=== PATIENT | female | born 1950 | race Caucasian/White ===

== ENCOUNTER 2016-09-03 01:21 | Inpatient (IN) | payer MEDICARE ==
[~2016-09-03] VITALS: Ht 177.8 cm; Wt 70.4 kg
[~2016-09-03 01:21] MED LIST: AMIT25TA9 PO
[2016-09-03] MEDS ORDERED: TRAM50TA4 PO (01:31)
[2016-09-03] MEDS ORDERED: TRAZ150 PO (01:31)
[2016-09-03] MEDS ORDERED: ATOR40TA71 PO (01:31)
[2016-09-03] MEDS ORDERED: DOCU250C21 PO (01:31)
[2016-09-03] MEDS ORDERED: SODIUM CHLORIDE 0.9% 1,000 ML IV ONE ×2 (01:45→09:30)
[2016-09-03] MEDS ORDERED: MORPHINE SULFATE 4 MG/ML SYRINGE IVP ONE (01:45)
[2016-09-03] MEDS ORDERED: ONDANSETRON HCL 4 MG/2 ML VIAL IVP ONE ×2 (01:45→12:00)
[2016-09-03 02:13] LABS: BASOPHILS # (AUTO) 0.01 K/uL (0.00-0.20); BASOPHILS % (AUTO) 0.1 % (0.0-2.0); EOSINOPHILS % (AUTO) 0.01 % (1.0-6.0); HEMATOCRIT 33.9 % (36-46); HEMOGLOBIN 11.6 g/dL (12.0-16.0); LYMPHOCYTES # (AUTO) 0.8 K/uL (1.0-4.8); LYMPHOCYTES % (AUTO) 3.7 % (22.0-44.0); MEAN CORPUSCULAR HEMOGLOBIN 29.9 pg (26.0-34.0); MEAN CORPUSCULAR HGB CONC 34.1 G/dL (31.0-37.0); MEAN CORPUSCULAR VOLUME 88 fL (80-100); MONOCYTES % (AUTO) 4.3 % (2.0-9.0); NEUTROPHILS # (AUTO) 20.3 K/uL (1.8-7.7); NEUTROPHILS % (AUTO) 91.9 % (40.0-70.0); PLATELET COUNT (AUTO) 255 K/uL (150-450); RED BLOOD CELL COUNT(AUTO) 3.86 MIL/uL (4.00-5.20); WHITE BLOOD COUNT (AUTO) 22.1 K/uL (4.5-11.0)
[2016-09-03 02:22] LABS: CREATININE 0.96 mg/dL (0.60-1.30); POTASSIUM 3.8 mmol/L (3.5-5.1)
[2016-09-03 02:27] LABS: ALBUMIN 3.4 g/dL (3.4-5.0); BILIRUBIN,TOTAL 0.6 mg/dL (0.1-1.0); TOTAL PROTEIN, SERUM 6.6 g/dL (6.4-8.2)
[2016-09-03] MEDS ORDERED: HYDROmorphone 2 MG/ML SYRINGE IVP ONE ×3 (02:30→12:45)
[2016-09-03] MEDS ORDERED: SODIUM CHLORIDE 0.9% 100 ML ONE (02:43)
[2016-09-03] MEDS ORDERED: IOVERSOL 350 MG/ML 100 ML VIAL ONE (02:43)
[2016-09-03] MEDS ORDERED: AMPICILLIN SODIUM/SULBACTAM NA 3 GM in SODIUM CHLORIDE 0.9% 100 ML IV ONE (04:30)
[2016-09-03 05:00] LABS: APPEARANCE,URINE CLEAR (CLEAR); GLUCOSE, URINE (UA) NEGATIVE (NEGATIVE); KETONES,URINE TRACE mg/dL (NEGATIVE); LEUKOCYTE ESTERASE ,URINE NEGATIVE (NEGATIVE); OCCULT BLOOD,URINE NEGATIVE (NEGATIVE); PROTEIN,URINE NEGATIVE (NEGATIVE)
[2016-09-03 05:07] LABS: ADD UA MICROSCOPIC NO
[2016-09-03] MEDS ORDERED: RINGERS SOLUTION,LACTATED 1,000 ML IV ONE (06:56)
[2016-09-03] MEDS ORDERED: MEPERIDINE-PF 25 MG/ML SYRINGE IVP PRN (08:00)
[2016-09-03] MEDS ORDERED: HYDROmorphone 2 MG/ML SYRINGE IVP PRN (08:00)
[2016-09-03] MEDS ORDERED: FentaNYL CITRATE-PF 100 MCG/2 ML VIAL IVP PRN (08:00)
[2016-09-03] MEDS ORDERED: HYDROCODONE/ACETAMINOPHEN 5-325 MG TABLET PO PRN (08:15)
[2016-09-03] MEDS ORDERED: ONDANSETRON HCL 4 MG/2 ML VIAL IVP PRN (08:15)
[2016-09-03] MEDS ORDERED: FentaNYL CITRATE-PF 100 MCG/2 ML VIAL ONE (08:42)
[2016-09-03] MEDS ORDERED: BUPIVACAINE 0.25%/EPI 1:200,000/PF 10 ML VIAL ONE (09:30)
[2016-09-03 09:47] VITALS: BP 125/58
[2016-09-03] MEDS: MORPHINE SULFATE 4 MG/ML SYRINGE IVP PRN ×2 (10:12→12:26)
[2016-09-03] MEDS: OXYGEN THERAPY IH SCH ×2 (10:12→20:57)
[2016-09-03 10:15] VITALS: BP 118/63
[2016-09-03] MEDS ORDERED: -PHARMACY VACCINE NOTE- MISC ONE ×2 (11:15)
[2016-09-03] MEDS ORDERED: INFLUENZA VIRUS VACCINE QVS 2016-17 (3YR+)/PF 60 MCG/0.5 ML SYRINGE IM ONE (11:15)
[2016-09-03 11:21] VITALS: BP 128/54
[2016-09-03] MEDS: HYDROCODONE/ACETAMINOPHEN 5-325 MG TABLET PO PRN (11:30)
[2016-09-03] MEDS ORDERED: SUCCINYLCHOLINE CHLORIDE 20 MG/ML 10 ML VIAL IVP ONE (12:00)
[2016-09-03] MEDS ORDERED: FentaNYL CITRATE-PF 250 MCG/5 ML VIAL IVP ONE (12:00)
[2016-09-03] MEDS ORDERED: MIDAZOLAM HCL 2 MG/2 ML VIAL IVP ONE (12:00)
[2016-09-03] MEDS ORDERED: LIDOCAINE HCL/PF 2% 5 ML VIAL INJ ONE (12:00)
[2016-09-03] MEDS ORDERED: PROPOFOL 1% 20 ML VIAL IVP ONE (12:00)
[2016-09-03] MEDS: DOCUSATE SODIUM 100 MG CAPSULE PO SCH ×2 (12:00→19:58)
[2016-09-03] MEDS: PANTOPRAZOLE SODIUM 40 MG/VIAL IVP SCH (12:00)
[2016-09-03] MEDS: CefoTEtan DISOD 1 GM/DEXTROSE 50 ML IV SCH ×2 (12:19→20:31)
[2016-09-03] MEDS: POTASSIUM CHL 20 MEQ/D5-0.45NS 1,000 ML IV SCH ×2 (12:19→20:31)
[2016-09-03] MEDS: KETOROLAC TROMETHAMINE 30 MG/ML VIAL IVP SCH ×2 (13:28→19:58)
[2016-09-03] MEDS: DiphenhydrAMINE HCL 25 MG CAPSULE PO PRN (14:27)
[2016-09-03 15:32] VITALS: BP 112/51
[2016-09-03] MEDS: TraZODone HCL 150 MG TABLET PO SCH (19:59)
[2016-09-03] MEDS: HYDROmorphone 2 MG/ML SYRINGE IVP PRN (20:57)
[2016-09-03 21:00] VITALS: BP 117/45
[2016-09-03] MEDS ORDERED: ALBUTEROL SULFATE 2.5 MG/0.5 ML NEB SOLUTION NEB PRN (23:15)
[2016-09-03] MEDS ORDERED: IPRATROPIUM BROMIDE 0.5 MG/2.5 ML NEB SOLUTION NEB PRN (23:15)
[2016-09-04] VITALS (7 sets, daily range): BP systolic 89–114; BP diastolic 48–56
[2016-09-04] MEDS: KETOROLAC TROMETHAMINE 30 MG/ML VIAL IVP SCH ×5 (00:06→23:57)
[2016-09-04] MEDS: POTASSIUM CHL 20 MEQ/D5-0.45NS 1,000 ML IV SCH ×3 (00:15→15:54)
[2016-09-04] MEDS: DiphenhydrAMINE HCL 25 MG CAPSULE PO PRN (01:45)
[2016-09-04] MEDS: HYDROCODONE/ACETAMINOPHEN 5-325 MG TABLET PO PRN ×2 (01:45→23:15)
[2016-09-04] MEDS ORDERED: 0.9% SODIUM CHLORIDE 10 ML SYRINGE IVP PRN (04:45)
[2016-09-04 07:01] LABS: BASOPHILS % (AUTO) 0.1 % (0.0-2.0); EOSINOPHILS % (AUTO) 0.7 % (1.0-6.0); HEMATOCRIT 30.2 % (36-46); HEMOGLOBIN 9.8 g/dL (12.0-16.0); LYMPHOCYTES # (AUTO) 1.2 K/uL (1.0-4.8); MEAN CORPUSCULAR HEMOGLOBIN 29.1 pg (26.0-34.0); MEAN CORPUSCULAR HGB CONC 32.4 G/dL (31.0-37.0); MEAN CORPUSCULAR VOLUME 90 fL (80-100); MONOCYTES # (AUTO) 0.6 K/uL (0.1-1.0); MONOCYTES % (AUTO) 3.1 % (2.0-9.0); NEUTROPHILS # (AUTO) 15.9 K/uL (1.8-7.7); PLATELET COUNT (AUTO) 190 K/uL (150-450); RED BLOOD CELL COUNT(AUTO) 3.36 MIL/uL (4.00-5.20); RED CELL DISTRIBUTION WIDTH 13.5 % (11.5-14.5); WHITE BLOOD COUNT (AUTO) 17.8 K/uL (4.5-11.0)
[2016-09-04 07:07] LABS: NEUTROPHILS % (AUTO) 89.1 % (40.0-70.0)
[2016-09-04 07:25] LABS: CALCIUM, TOTAL 7.2 mg/dL (8.8-10.5); CREATININE 1.2 mg/dL (0.60-1.30); POTASSIUM 3.9 mmol/L (3.5-5.1)
[2016-09-04] MEDS: OXYGEN THERAPY IH SCH ×2 (08:00→20:00)
[2016-09-04] MEDS: DOCUSATE SODIUM 100 MG CAPSULE PO SCH ×2 (08:21→20:48)
[2016-09-04] MEDS: PANTOPRAZOLE SODIUM 40 MG/VIAL IVP SCH (08:21)
[2016-09-04] MEDS: ATORVASTATIN CALCIUM 40 MG TABLET PO SCH (08:21)
[2016-09-04] MEDS: HYDROmorphone 2 MG/ML SYRINGE IVP PRN ×3 (08:22→20:03)
[2016-09-04] MEDS: CefoTEtan DISOD 1 GM/DEXTROSE 50 ML IV SCH ×2 (09:18→20:49)
[2016-09-04] MEDS: TraZODone HCL 150 MG TABLET PO SCH (20:48)
[2016-09-05] MEDS: POTASSIUM CHL 20 MEQ/D5-0.45NS 1,000 ML IV SCH ×2 (00:23→08:52)
[2016-09-05] MEDS: HYDROmorphone 2 MG/ML SYRINGE IVP PRN (03:15)
[2016-09-05 03:20] VITALS: BP 115/57
[2016-09-05] MEDS: DiphenhydrAMINE HCL 25 MG CAPSULE PO PRN (05:37)
[2016-09-05] MEDS: KETOROLAC TROMETHAMINE 30 MG/ML VIAL IVP SCH ×2 (05:48→11:13)
[2016-09-05 06:44] LABS: BASOPHILS % (AUTO) 0.2 % (0.0-2.0); EOSINOPHILS % (AUTO) 2.3 % (1.0-6.0); HEMATOCRIT 29.2 % (36-46); HEMOGLOBIN 9.5 g/dL (12.0-16.0); LYMPHOCYTES # (AUTO) 1.1 K/uL (1.0-4.8); MEAN CORPUSCULAR HEMOGLOBIN 29.3 pg (26.0-34.0); MEAN CORPUSCULAR HGB CONC 32.4 G/dL (31.0-37.0); MEAN CORPUSCULAR VOLUME 90 fL (80-100); MONOCYTES # (AUTO) 0.7 K/uL (0.1-1.0); MONOCYTES % (AUTO) 4.9 % (2.0-9.0); NEUTROPHILS # (AUTO) 11.7 K/uL (1.8-7.7); NEUTROPHILS % (AUTO) 84.6 % (40.0-70.0); PLATELET COUNT (AUTO) 180 K/uL (150-450); RED BLOOD CELL COUNT(AUTO) 3.23 MIL/uL (4.00-5.20); RED CELL DISTRIBUTION WIDTH 13.3 % (11.5-14.5); WHITE BLOOD COUNT (AUTO) 13.9 K/uL (4.5-11.0)
[2016-09-05 07:12] LABS: CALCIUM, TOTAL 7.2 mg/dL (8.8-10.5); CREATININE 1.12 mg/dL (0.60-1.30); POTASSIUM 4.1 mmol/L (3.5-5.1)
[2016-09-05] MEDS: HYDROCODONE/ACETAMINOPHEN 5-325 MG TABLET PO PRN ×2 (07:41→14:58)
[2016-09-05 07:55] VITALS: BP 93/42
[2016-09-05] MEDS: OXYGEN THERAPY IH SCH (08:00)
[2016-09-05] MEDS: CefoTEtan DISOD 1 GM/DEXTROSE 50 ML IV SCH (08:45)
[2016-09-05] MEDS: PANTOPRAZOLE SODIUM 40 MG/VIAL IVP SCH (08:45)
[2016-09-05] MEDS: ATORVASTATIN CALCIUM 40 MG TABLET PO SCH (08:51)
[2016-09-05] MEDS: DOCUSATE SODIUM 100 MG CAPSULE PO SCH (08:51)
[2016-09-05] MEDS ORDERED: MUPIROCIN CALCIUM 2% 22 GM OINTMENT NASAL SCH (10:00)
[2016-09-05 11:33] VITALS: BP 110/44
[2016-09-05 15:58] VITALS: BP 125/72
[2016-09-05] MEDS ORDERED: MUPI1OIN5 NASAL (16:15)
== END 2016-09-05 16:44 | disposition home or self-care (01) | DRG 853 ==
LOC: EMS 01:22 → 6N 05:38 → 4E 10:21
PROVIDERS: ADMIT Family Medicine; ATTEND Family Medicine
PROC: 0DTJ4ZZ Resection of Appendix, Percutaneous Endoscopic Approach (ICD-10-PCS; principal; 2016-09-03 07:30)
DX: A41.9 Sepsis, unspecified organism (principal); K35.2 Acute appendicitis with generalized peritonitis; E78.00 Pure hypercholesterolemia, unspecified; E78.5 Hyperlipidemia, unspecified; F20.9 Schizophrenia, unspecified; F41.9 Anxiety disorder, unspecified; H35.30 Unspecified macular degeneration; F17.210 Nicotine dependence, cigarettes, uncomplicated; J44.9 Chronic obstructive pulmonary disease, unspecified; K38.1 Appendicular concretions; K56.41 Fecal impaction; Z79.1 Long term (current) use of non-steroidal anti-inflammatories (NSAID); Z79.899 Other long term (current) drug therapy; Z71.6 Tobacco abuse counseling; Z28.21 Immunization not carried out because of patient refusal; Z79.51 Long term (current) use of inhaled steroids
CPT/HCPCS: 74000; 74177; 83605; 87081; 88304; 93005; 96361; 96365; 96375; 96376; 99285; C9113; J0295; J0330; J1170; J1885; J2250; J2270; J2405; J2704; J3010; J3480; J3490; J7030; J7050; J7120

== ENCOUNTER 2016-09-07 19:18 | Emergency (ER) | payer MEDICARE ==
[~2016-09-07] VITALS: Ht 175.3 cm; Wt 59.1 kg
[~2016-09-07 19:18] MED LIST changes: -AMIT25TA9 PO; +ATOR40TA71 PO; +DOCU250C21 PO; +MUPI1OIN5 NASAL; +TRAM50TA4 PO; +TRAZ150 PO
[2016-09-07] MEDS ORDERED: SODIUM CHLORIDE 0.9% 1,000 ML IV ONE (21:45)
[2016-09-07] MEDS ORDERED: HYDROmorphone 2 MG/ML SYRINGE IVP ONE (21:45)
[2016-09-07] MEDS ORDERED: ONDANSETRON HCL 4 MG/2 ML VIAL IVP ONE (21:45)
[2016-09-07 21:54] LABS: BASOPHILS % (AUTO) 0.1 % (0.0-2.0); EOSINOPHILS % (AUTO) 3.4 % (1.0-6.0); HEMOGLOBIN 10.5 g/dL (12.0-16.0); LYMPHOCYTES # (AUTO) 1.3 K/uL (1.0-4.8); LYMPHOCYTES % (AUTO) 9.8 % (22.0-44.0); MEAN CORPUSCULAR HEMOGLOBIN 29.1 pg (26.0-34.0); MEAN CORPUSCULAR HGB CONC 32.8 G/dL (31.0-37.0); MEAN CORPUSCULAR VOLUME 89 fL (80-100); MONOCYTES % (AUTO) 7.8 % (2.0-9.0); NEUTROPHILS # (AUTO) 10.1 K/uL (1.8-7.7); NEUTROPHILS % (AUTO) 78.9 % (40.0-70.0); PLATELET COUNT (AUTO) 340 K/uL (150-450); RED BLOOD CELL COUNT(AUTO) 3.61 MIL/uL (4.00-5.20); RED CELL DISTRIBUTION WIDTH 13.4 % (11.5-14.5); WHITE BLOOD COUNT (AUTO) 12.9 K/uL (4.5-11.0)
[2016-09-07 22:03] LABS: ANION GAP 11 mmol/L (8-16); CALCIUM, TOTAL 9.1 mg/dL (8.8-10.5); CARBON DIOXIDE 26 mmol/L (22-29); CHLORIDE 104 mmol/L (98-107); CREATININE 0.89 mg/dL (0.60-1.30); GLOMERULAR FILTR. RATE CALC > 60 mL/min (>60); POTASSIUM 3.9 mmol/L (3.5-5.1); SODIUM SERUM 141 mmol/L (136-145); UREA NITROGEN, BLOOD 9 mg/dL (7-18)
[2016-09-07 22:08] LABS: ALANINE AMINOTRANSFERASE 29 U/L (12-78); ALBUMIN 2.7 g/dL (3.4-5.0); ASPARTATE AMINOTRANSFERASE 26 U/L (15-37); BILIRUBIN,TOTAL 0.5 mg/dL (0.1-1.0); TOTAL PROTEIN, SERUM 6.8 g/dL (6.4-8.2)
[2016-09-07] MEDS ORDERED: IOVERSOL 320 MG/ML 100 ML VIAL ONE (22:13)
[2016-09-07] MEDS ORDERED: BARIUM SULFATE 0.1% SUSPENSION 450 ML BOTTLE PO ONE (23:15)
[2016-09-08] MEDS ORDERED: ONDANSETRON HCL 4 MG/2 ML VIAL IVP ONE (00:45)
[2016-09-08] MEDS ORDERED: HYDROmorphone 2 MG/ML SYRINGE IVP ONE (00:45)
[2016-09-08] MEDS ORDERED: MetroNIDAZOLE 250 MG TABLET PO ONE (02:00)
[2016-09-08] MEDS ORDERED: CIPROFLOXACIN HCL 250 MG TABLET PO ONE (02:00)
[2016-09-08 02:01] VITALS: BP 124/71
== END 2016-09-08 02:03 | disposition home or self-care (01) ==
LOC: EMS 19:19
DX: K91.89 Other postprocedural complications and disorders of digestive system (principal); G89.18 Other acute postprocedural pain; K56.7 Ileus, unspecified; J44.9 Chronic obstructive pulmonary disease, unspecified; E78.00 Pure hypercholesterolemia, unspecified; F17.210 Nicotine dependence, cigarettes, uncomplicated
CPT/HCPCS: 36415; 74177; 80053; 85025; 96361; 96374; 96375; 96376; 99285; 99406; J1170 ×2; J2405 ×2; J7030; Q9967

== ENCOUNTER 2016-09-10 09:39 | Emergency (ER) | payer MEDICARE ==
[~2016-09-10] VITALS: Ht 175.3 cm; Wt 59.0 kg
[~2016-09-10 09:39] MED LIST changes: +AMIT25TA9 PO
[2016-09-10] MEDS ORDERED: ANTIBIOTICS PO (09:52)
[2016-09-10] MEDS ORDERED: HYDR-309 PO (09:52)
[2016-09-10] MEDS ORDERED: PERCT PO (09:53)
[2016-09-10 10:29] LABS: BASOPHILS % (AUTO) 0.3 % (0.0-2.0); EOSINOPHILS % (AUTO) 0.9 % (1.0-6.0); HEMATOCRIT 32.8 % (36-46); HEMOGLOBIN 10.8 g/dL (12.0-16.0); LYMPHOCYTES # (AUTO) 0.4 K/uL (1.0-4.8); LYMPHOCYTES % (AUTO) 3.6 % (22.0-44.0); MEAN CORPUSCULAR HEMOGLOBIN 28.7 pg (26.0-34.0); MEAN CORPUSCULAR HGB CONC 32.8 G/dL (31.0-37.0); MEAN CORPUSCULAR VOLUME 88 fL (80-100); MONOCYTES # (AUTO) 0.6 K/uL (0.1-1.0); MONOCYTES % (AUTO) 4.6 % (2.0-9.0); NEUTROPHILS # (AUTO) 11.1 K/uL (1.8-7.7); NEUTROPHILS % (AUTO) 90.6 % (40.0-70.0); PLATELET COUNT (AUTO) 493 K/uL (150-450); RED BLOOD CELL COUNT(AUTO) 3.75 MIL/uL (4.00-5.20); RED CELL DISTRIBUTION WIDTH 13.8 % (11.5-14.5); WHITE BLOOD COUNT (AUTO) 12.3 K/uL (4.5-11.0)
[2016-09-10 10:37] LABS: CALCIUM, TOTAL 9.1 mg/dL (8.8-10.5); CREATININE 0.96 mg/dL (0.60-1.30); POTASSIUM 3.7 mmol/L (3.5-5.1)
[2016-09-10 10:42] LABS: ALBUMIN 3.1 g/dL (3.4-5.0); BILIRUBIN,TOTAL 0.3 mg/dL (0.1-1.0); TOTAL PROTEIN, SERUM 7.3 g/dL (6.4-8.2)
[2016-09-10 10:45] LABS: RBC MORPHOLOGY COMMENT NORMAL RBC MORPH
[2016-09-10] MEDS ORDERED: ONDANSETRON HCL 4 MG/2 ML VIAL IVP ONE ×3 (10:45→13:45)
[2016-09-10] MEDS ORDERED: MORPHINE SULFATE 2 MG/ML SYRINGE IVP ONE (10:45)
[2016-09-10] MEDS ORDERED: MORPHINE SULFATE 4 MG/ML SYRINGE IVP ONE (11:30)
[2016-09-10] MEDS ORDERED: SODIUM CHLORIDE 0.9% 500 ML IV ONE ×3 (11:30→12:30)
[2016-09-10 12:40] LABS: APPEARANCE,URINE CLOUDY (CLEAR); GLUCOSE, URINE (UA) NEGATIVE (NEGATIVE); KETONES,URINE >=80 mg/dL (NEGATIVE); LEUKOCYTE ESTERASE ,URINE NEGATIVE (NEGATIVE); OCCULT BLOOD,URINE NEGATIVE (NEGATIVE); PH,URINE 6.5 (5.0-8.0); PROTEIN,URINE TRACE (NEGATIVE)
[2016-09-10 12:43] LABS: ADD UA MICROSCOPIC YES
[2016-09-10 12:45] LABS: RBC,URINE None Seen /HPF (0-2); WBC,URINE 0-2 /HPF (0-5)
[2016-09-10 12:46] LABS: SQUAMOUS EPITHELIAL CELL,UR Moderate /LPF (None Seen)
[2016-09-10 14:05] VITALS: BP 121/98
== END 2016-09-10 14:28 | disposition home or self-care (01) ==
LOC: EMS 09:41
DX: R10.31 Right lower quadrant pain (principal); G89.18 Other acute postprocedural pain; J44.9 Chronic obstructive pulmonary disease, unspecified; E78.00 Pure hypercholesterolemia, unspecified; F17.210 Nicotine dependence, cigarettes, uncomplicated; Z90.49 Acquired absence of other specified parts of digestive tract
CPT/HCPCS: 36415; 80053; 81001; 83690; 84484; 85025; 93005; 96361; 96374; 96375; 96376; 99285; J2270 ×2; J2405; J7040

== ENCOUNTER 2016-09-13 13:09 | Emergency (ER) | payer MEDICARE ==
[~2016-09-13] VITALS: Ht 175.3 cm; Wt 59.1 kg
[~2016-09-13 13:09] MED LIST changes: -AMIT25TA9 PO; +ANTIBIOTICS PO; -ATOR40TA71 PO; -DOCU250C21 PO; +HYDR-309 PO; -MUPI1OIN5 NASAL; +PERCT PO; -TRAM50TA4 PO; -TRAZ150 PO
[2016-09-13] MEDS ORDERED: IBUPROFEN 800 MG TABLET PO ONE (15:45)
[2016-09-13 15:54] VITALS: BP 111/71
== END 2016-09-13 16:39 | disposition home or self-care (01) ==
LOC: EMS 13:10
DX: G89.18 Other acute postprocedural pain (principal); Z46.82 Encounter for fitting and adjustment of non-vascular catheter; R10.9 Unspecified abdominal pain; J44.9 Chronic obstructive pulmonary disease, unspecified; F20.9 Schizophrenia, unspecified; E78.00 Pure hypercholesterolemia, unspecified; F41.9 Anxiety disorder, unspecified; F17.210 Nicotine dependence, cigarettes, uncomplicated; Z90.49 Acquired absence of other specified parts of digestive tract
CPT/HCPCS: 99283; 99406

== ENCOUNTER 2016-09-19 10:49 | Inpatient (IN) | payer MEDICARE ==
[~2016-09-19] VITALS: Ht 177.8 cm; Wt 58.1 kg
[~2016-09-19 10:49] MED LIST changes: -ANTIBIOTICS PO
[2016-09-19] MEDS ORDERED: TRAM50TA4 PO (11:35)
[2016-09-19] MEDS ORDERED: DSS100 PO (11:35)
[2016-09-19] MEDS ORDERED: ZOLP5 PO (11:35)
[2016-09-19] MEDS ORDERED: AMOX1TAB15 PO (11:35)
[2016-09-19] MEDS ORDERED: ALEN10 PO (11:35)
[2016-09-19] MEDS ORDERED: ATOR20TA86 PO (11:35)
[2016-09-19 12:23] LABS: BASOPHILS # (AUTO) 0.09 K/uL (0.00-0.20); BASOPHILS % (AUTO) 0.7 % (0.0-2.0); EOSINOPHILS # (AUTO) 0.12 K/uL (0.00-0.70); EOSINOPHILS % (AUTO) 0.95 % (1.0-6.0); HEMATOCRIT 37.1 % (36-46); HEMOGLOBIN 12.3 g/dL (12.0-16.0); LYMPHOCYTES # (AUTO) 2.1 K/uL (1.0-4.8); MEAN CORPUSCULAR HEMOGLOBIN 28.6 pg (26.0-34.0); MEAN CORPUSCULAR VOLUME 87 fL (80-100); MONOCYTES # (AUTO) 0.8 K/uL (0.1-1.0); MONOCYTES % (AUTO) 6.1 % (2.0-9.0); NEUTROPHILS # (AUTO) 9.3 K/uL (1.8-7.7); NEUTROPHILS % (AUTO) 75.2 % (40.0-70.0); PLATELET COUNT (AUTO) 578 K/uL (150-450); RED BLOOD CELL COUNT(AUTO) 4.28 MIL/uL (4.00-5.20); RED CELL DISTRIBUTION WIDTH 14.6 % (11.5-14.5); WHITE BLOOD COUNT (AUTO) 12.3 K/uL (4.5-11.0)
[2016-09-19 12:28] LABS: CALCIUM, TOTAL 9.2 mg/dL (8.8-10.5); CREATININE 1.05 mg/dL (0.60-1.30); POTASSIUM 4.7 mmol/L (3.5-5.1)
[2016-09-19 12:34] LABS: ALBUMIN 3.5 g/dL (3.4-5.0); BILIRUBIN,TOTAL 0.3 mg/dL (0.1-1.0); TOTAL PROTEIN, SERUM 7.9 g/dL (6.4-8.2)
[2016-09-19 13:06] LABS: APPEARANCE,URINE CLOUDY (CLEAR); GLUCOSE, URINE (UA) NEGATIVE (NEGATIVE); KETONES,URINE NEGATIVE (NEGATIVE); LEUKOCYTE ESTERASE ,URINE MODERATE (NEGATIVE); OCCULT BLOOD,URINE NEGATIVE (NEGATIVE); PROTEIN,URINE POS 1+ (NEGATIVE)
[2016-09-19 13:19] LABS: ADD UA MICROSCOPIC YES
[2016-09-19 13:22] LABS: RBC,URINE None Seen /HPF (0-2); SQUAMOUS EPITHELIAL CELL,UR Few /LPF (None Seen); WBC,URINE 51-100 /HPF (0-5)
[2016-09-19] MEDS ORDERED: MORPHINE SULFATE 4 MG/ML SYRINGE IVP ONE ×2 (14:00→14:15)
[2016-09-19] MEDS ORDERED: ONDANSETRON HCL 4 MG/2 ML VIAL IVP ONE ×2 (14:00→16:15)
[2016-09-19] MEDS ORDERED: BARIUM SULFATE 0.1% SUSPENSION 450 ML BOTTLE PO ONE (14:30)
[2016-09-19] MEDS ORDERED: IOVERSOL 320 MG/ML 100 ML VIAL ONE (16:01)
[2016-09-19 19:22] VITALS: BP 116/54
[2016-09-19 20:06] VITALS: BP 114/57
[2016-09-19] MEDS: MORPHINE SULFATE 2 MG/ML SYRINGE IVP PRN (20:44)
[2016-09-19] MEDS: DEXTROSE 5%-0.45% SODIUM CHL 1,000 ML IV SCH (20:44)
[2016-09-19] MEDS: HEPARIN SODIUM,PORCINE 5,000 UNITS/ML VIAL SQ SCH (23:46)
[2016-09-20] VITALS: BP 110/56
[2016-09-20] MEDS ORDERED: -PHARMACY VACCINE NOTE- MISC ONE ×2 (01:15)
[2016-09-20] MEDS: DEXTROSE 5%-0.45% SODIUM CHL 1,000 ML IV SCH ×3 (05:07→22:36)
[2016-09-20 05:08] VITALS: BP 114/59
[2016-09-20] MEDS: MORPHINE SULFATE 2 MG/ML SYRINGE IVP PRN ×3 (05:11→14:05)
[2016-09-20 07:10] VITALS: BP 104/50
[2016-09-20] MEDS: HEPARIN SODIUM,PORCINE 5,000 UNITS/ML VIAL SQ SCH ×3 (07:31→22:37)
[2016-09-20] MEDS: ONDANSETRON HCL 4 MG/2 ML VIAL IM PRN ×2 (08:01→14:04)
[2016-09-20 11:20] VITALS: BP 109/50
[2016-09-20 16:05] VITALS: BP 112/60
[2016-09-20] MEDS: CefTRIAXone 1 GM/DEXTROSE 50 ML IV SCH (16:24)
[2016-09-20 20:00] VITALS: BP 113/49
[2016-09-21] VITALS: BP 122/60
[2016-09-21] MEDS: ONDANSETRON HCL 4 MG/2 ML VIAL IM PRN (02:48)
[2016-09-21 03:01] VITALS: BP 115/61
[2016-09-21] MEDS: MORPHINE SULFATE 2 MG/ML SYRINGE IVP PRN ×4 (04:25→20:44)
[2016-09-21 07:30] VITALS: BP 118/63
[2016-09-21 07:31] LABS: BASOPHILS % (AUTO) 0.5 % (0.0-2.0); EOSINOPHILS % (AUTO) 1.6 % (1.0-6.0); HEMOGLOBIN 9.1 g/dL (12.0-16.0); LYMPHOCYTES # (AUTO) 2.1 K/uL (1.0-4.8); LYMPHOCYTES % (AUTO) 20.4 % (22.0-44.0); MEAN CORPUSCULAR HEMOGLOBIN 27.6 pg (26.0-34.0); MEAN CORPUSCULAR HGB CONC 31.3 G/dL (31.0-37.0); MEAN CORPUSCULAR VOLUME 88 fL (80-100); MONOCYTES # (AUTO) 1.2 K/uL (0.1-1.0); MONOCYTES % (AUTO) 11.4 % (2.0-9.0); NEUTROPHILS # (AUTO) 6.7 K/uL (1.8-7.7); NEUTROPHILS % (AUTO) 66.1 % (40.0-70.0); PLATELET COUNT (AUTO) 399 K/uL (150-450); RED BLOOD CELL COUNT(AUTO) 3.29 MIL/uL (4.00-5.20); RED CELL DISTRIBUTION WIDTH 13.8 % (11.5-14.5); WHITE BLOOD COUNT (AUTO) 10.2 K/uL (4.5-11.0)
[2016-09-21 07:56] LABS: AMYLASE 70 U/L (25-115); ANION GAP 10 mmol/L (8-16); CARBON DIOXIDE 23 mmol/L (22-29); CHLORIDE 109 mmol/L (98-107); CREATININE 0.81 mg/dL (0.60-1.30); GLOMERULAR FILTR. RATE CALC > 60 mL/min (>60); POTASSIUM 3.9 mmol/L (3.5-5.1); SODIUM SERUM 142 mmol/L (136-145); UREA NITROGEN, BLOOD 5 mg/dL (7-18)
[2016-09-21] MEDS: HEPARIN SODIUM,PORCINE 5,000 UNITS/ML VIAL SQ SCH ×3 (08:14→22:33)
[2016-09-21] MEDS: ONDANSETRON HCL 4 MG/2 ML VIAL IVP PRN ×2 (10:43→16:00)
[2016-09-21 11:15] VITALS: BP 114/60
[2016-09-21] MEDS: DEXTROSE 5%-0.45% SODIUM CHL 1,000 ML IV SCH ×2 (11:21→22:33)
[2016-09-21] MEDS: CefTRIAXone 1 GM/DEXTROSE 50 ML IV SCH (14:01)
[2016-09-21] MEDS: PANTOPRAZOLE SODIUM 40 MG/VIAL IVP SCH (14:02)
[2016-09-21 20:28] VITALS: BP 91/50
[2016-09-22] VITALS (7 sets, daily range): BP systolic 110–145; BP diastolic 51–64
[2016-09-22] MEDS: ONDANSETRON HCL 4 MG/2 ML VIAL IVP PRN ×2 (07:47→22:59)
[2016-09-22] MEDS: MORPHINE SULFATE 2 MG/ML SYRINGE IVP PRN ×3 (07:47→23:13)
[2016-09-22] MEDS: PANTOPRAZOLE SODIUM 40 MG/VIAL IVP SCH (08:53)
[2016-09-22] MEDS: HEPARIN SODIUM,PORCINE 5,000 UNITS/ML VIAL SQ SCH ×3 (08:59→22:59)
[2016-09-22] MEDS: DEXTROSE 5%-0.45% SODIUM CHL 1,000 ML IV SCH ×4 (09:01→23:00)
[2016-09-22] MEDS: CefTRIAXone 1 GM/DEXTROSE 50 ML IV SCH (16:38)
[2016-09-23 04:00] VITALS: BP 129/58
[2016-09-23] MEDS ORDERED: ALENDRONATE SODIUM 70 MG TABLET PO SCH (06:30)
[2016-09-23 07:03] LABS: BASOPHILS # (AUTO) 0.09 K/uL (0.00-0.20); BASOPHILS % (AUTO) 0.9 % (0.0-2.0); EOSINOPHILS # (AUTO) 0.14 K/uL (0.00-0.70); EOSINOPHILS % (AUTO) 1.36 % (1.0-6.0); HEMATOCRIT 26.2 % (36-46); HEMOGLOBIN 8.8 g/dL (12.0-16.0); LYMPHOCYTES # (AUTO) 1.8 K/uL (1.0-4.8); LYMPHOCYTES % (AUTO) 17.9 % (22.0-44.0); MEAN CORPUSCULAR HEMOGLOBIN 29.1 pg (26.0-34.0); MEAN CORPUSCULAR HGB CONC 33.6 G/dL (31.0-37.0); MEAN CORPUSCULAR VOLUME 86 fL (80-100); MONOCYTES # (AUTO) 1.2 K/uL (0.1-1.0); MONOCYTES % (AUTO) 11.6 % (2.0-9.0); NEUTROPHILS # (AUTO) 6.8 K/uL (1.8-7.7); NEUTROPHILS % (AUTO) 68.2 % (40.0-70.0); PLATELET COUNT (AUTO) 333 K/uL (150-450); RED BLOOD CELL COUNT(AUTO) 3.03 MIL/uL (4.00-5.20); RED CELL DISTRIBUTION WIDTH 14.2 % (11.5-14.5)
[2016-09-23 07:17] LABS: AMYLASE 49 U/L (25-115); ANION GAP 8 mmol/L (8-16); CALCIUM, TOTAL 8.1 mg/dL (8.8-10.5); CARBON DIOXIDE 26 mmol/L (22-29); CHLORIDE 107 mmol/L (98-107); CREATININE 0.85 mg/dL (0.60-1.30); GLOMERULAR FILTR. RATE CALC > 60 mL/min (>60); POTASSIUM 3.7 mmol/L (3.5-5.1); SODIUM SERUM 141 mmol/L (136-145); UREA NITROGEN, BLOOD 5 mg/dL (7-18)
[2016-09-23] MEDS: HEPARIN SODIUM,PORCINE 5,000 UNITS/ML VIAL SQ SCH (07:51)
[2016-09-23] MEDS: PANTOPRAZOLE SODIUM 40 MG/VIAL IVP SCH (07:51)
[2016-09-23] MEDS: ONDANSETRON HCL 4 MG/2 ML VIAL IVP PRN ×2 (07:51→19:48)
[2016-09-23] MEDS: MORPHINE SULFATE 2 MG/ML SYRINGE IVP PRN ×2 (07:51→19:45)
[2016-09-23 07:58] VITALS: BP 131/63
[2016-09-23 11:19] VITALS: BP 128/56
[2016-09-23] MEDS ORDERED: MAGNESIUM SULFATE 2 GM in DEXTROSE 5%-WATER 50 ML IV PRN (11:45)
[2016-09-23] MEDS ORDERED: MAGNESIUM SULFATE 4 GM/WATER 100 ML IV PRN (11:45)
[2016-09-23] MEDS ORDERED: MAGNESIUM OXIDE 400 MG TABLET PO PRN (11:45)
[2016-09-23 12:14] LABS: ALBUMIN 2.3 g/dL (3.4-5.0)
[2016-09-23 15:49] VITALS: BP 104/53
[2016-09-23] MEDS: CefTRIAXone 1 GM/DEXTROSE 50 ML IV SCH (15:51)
[2016-09-23] MEDS ORDERED: 0.9% SODIUM CHLORIDE 10 ML SYRINGE IVP PRN (18:00)
[2016-09-23 19:44] VITALS: BP 153/70
[2016-09-24] VITALS (7 sets, daily range): BP systolic 98–128; BP diastolic 46–60
[2016-09-24] MEDS: DEXTROSE 5%-0.45% SODIUM CHL 1,000 ML IV SCH (00:02)
[2016-09-24] MEDS: MORPHINE SULFATE 2 MG/ML SYRINGE IVP PRN ×3 (00:03→18:10)
[2016-09-24] MEDS: ONDANSETRON HCL 4 MG/2 ML VIAL IVP PRN ×2 (05:04→18:10)
[2016-09-24] MEDS ORDERED: LIDOCAINE HCL/PF 2% 5 ML VIAL IM ONE (05:22)
[2016-09-24] MEDS ORDERED: PROPOFOL 1% 20 ML VIAL IVP ONE (05:22)
[2016-09-24 06:07] LABS: BASOPHILS % (AUTO) 0.6 % (0.0-2.0); EOSINOPHILS % (AUTO) 1.7 % (1.0-6.0); HEMATOCRIT 29.3 % (36-46); HEMOGLOBIN 9.5 g/dL (12.0-16.0); LYMPHOCYTES # (AUTO) 1.9 K/uL (1.0-4.8); LYMPHOCYTES % (AUTO) 18.7 % (22.0-44.0); MEAN CORPUSCULAR HEMOGLOBIN 28.6 pg (26.0-34.0); MEAN CORPUSCULAR HGB CONC 32.3 G/dL (31.0-37.0); MEAN CORPUSCULAR VOLUME 88 fL (80-100); MONOCYTES # (AUTO) 1.2 K/uL (0.1-1.0); MONOCYTES % (AUTO) 11.7 % (2.0-9.0); NEUTROPHILS # (AUTO) 6.8 K/uL (1.8-7.7); NEUTROPHILS % (AUTO) 67.3 % (40.0-70.0); PLATELET COUNT (AUTO) 337 K/uL (150-450); RED BLOOD CELL COUNT(AUTO) 3.32 MIL/uL (4.00-5.20); RED CELL DISTRIBUTION WIDTH 13.5 % (11.5-14.5); WHITE BLOOD COUNT (AUTO) 10.1 K/uL (4.5-11.0)
[2016-09-24 06:11] LABS: PROTHROMBIN TIME 10.8 SEC (9.4-11.6)
[2016-09-24 06:58] LABS: ANION GAP 6 mmol/L (8-16); CALCIUM, TOTAL 8.3 mg/dL (8.8-10.5); CARBON DIOXIDE 28 mmol/L (22-29); CHLORIDE 107 mmol/L (98-107); CREATININE 0.82 mg/dL (0.60-1.30); GLOMERULAR FILTR. RATE CALC > 60 mL/min (>60); POTASSIUM 3.6 mmol/L (3.5-5.1); SODIUM SERUM 141 mmol/L (136-145); UREA NITROGEN, BLOOD 3 mg/dL (7-18)
[2016-09-24] MEDS ORDERED: SODIUM CHLORIDE 0.9% 1,000 ML IV ONE ×2 (13:22→13:30)
[2016-09-24 13:59] LABS: APPEARANCE,URINE CLEAR (CLEAR); GLUCOSE, URINE (UA) NEGATIVE (NEGATIVE); KETONES,URINE NEGATIVE (NEGATIVE); LEUKOCYTE ESTERASE ,URINE NEGATIVE (NEGATIVE); OCCULT BLOOD,URINE NEGATIVE (NEGATIVE); PROTEIN,URINE NEGATIVE (NEGATIVE)
[2016-09-24 14:02] LABS: ADD UA MICROSCOPIC NO
[2016-09-24] MEDS: PANTOPRAZOLE SODIUM 40 MG/VIAL IVP SCH ×2 (14:16→19:54)
[2016-09-24] MEDS ORDERED: MEPERIDINE-PF 25 MG/ML SYRINGE IVP PRN (15:45)
[2016-09-24] MEDS ORDERED: HYDROmorphone 2 MG/ML SYRINGE IVP PRN (15:45)
[2016-09-24] MEDS ORDERED: FentaNYL CITRATE-PF 100 MCG/2 ML VIAL IVP PRN (15:45)
[2016-09-24] MEDS: CefTRIAXone 1 GM/DEXTROSE 50 ML IV SCH (16:29)
[2016-09-25] MEDS: ONDANSETRON HCL 4 MG/2 ML VIAL IVP PRN ×2 (00:37→07:25)
[2016-09-25] MEDS: MORPHINE SULFATE 2 MG/ML SYRINGE IVP PRN ×2 (00:37→07:25)
[2016-09-25] MEDS: DEXTROSE 5%-0.45% SODIUM CHL 1,000 ML IV SCH (00:38)
[2016-09-25 05:38] VITALS: BP 113/58
[2016-09-25 07:35] LABS: ALANINE AMINOTRANSFERASE 6 U/L (12-78); AMYLASE 39 U/L (25-115); ANION GAP 8 mmol/L (8-16); ASPARTATE AMINOTRANSFERASE 8 U/L (15-37); BILIRUBIN,TOTAL 0.3 mg/dL (0.1-1.0); CALCIUM, TOTAL 7.9 mg/dL (8.8-10.5); CARBON DIOXIDE 26 mmol/L (22-29); CHLORIDE 108 mmol/L (98-107); CREATININE 0.77 mg/dL (0.60-1.30); GLOMERULAR FILTR. RATE CALC > 60 mL/min (>60); POTASSIUM 3.4 mmol/L (3.5-5.1); SODIUM SERUM 142 mmol/L (136-145); TOTAL PROTEIN, SERUM 5.3 g/dL (6.4-8.2); UREA NITROGEN, BLOOD 3 mg/dL (7-18)
[2016-09-25 07:47] VITALS: BP 100/55
[2016-09-25] MEDS ORDERED: HYDROCODONE/ACETAMINOPHEN 5-325 MG TABLET PO PRN (10:00)
[2016-09-25 11:53] VITALS: BP 127/53
[2016-09-25] MEDS: CefTRIAXone 1 GM/DEXTROSE 50 ML IV SCH (14:12)
[2016-09-25] MEDS: PANTOPRAZOLE SODIUM 40 MG/VIAL IVP SCH (14:12)
[2016-09-25 15:36] VITALS: BP 123/52
[2016-09-25] MEDS ORDERED: PANT40TA25 PO (17:40)
[2016-09-25] MEDS ORDERED: ONDANSETRON HCL 4 MG TABLET PO ONE (19:00)
== END 2016-09-25 19:15 | disposition home or self-care (01) | DRG 871 ==
LOC: EMS 10:50 → 6N 14:33
PROVIDERS: ADMIT Family Medicine; ATTEND Family Medicine
PROC: 0DB68ZX Excision of Stomach, Via Natural or Artificial Opening Endoscopic, Diagnostic (ICD-10-PCS; principal; 2016-09-24 14:30)
DX: A41.9 Sepsis, unspecified organism (principal); K85.90 Acute pancreatitis without necrosis or infection, unspecified; N39.0 Urinary tract infection, site not specified; E78.00 Pure hypercholesterolemia, unspecified; E78.5 Hyperlipidemia, unspecified; F20.9 Schizophrenia, unspecified; F41.9 Anxiety disorder, unspecified; G89.4 Chronic pain syndrome; H35.30 Unspecified macular degeneration; H54.0 Blindness, both eyes; J44.9 Chronic obstructive pulmonary disease, unspecified; R63.3 Feeding difficulties; K25.9 Gastric ulcer, unspecified as acute or chronic, without hemorrhage or perforation; K21.9 Gastro-esophageal reflux disease without esophagitis; Z53.29 Procedure and treatment not carried out because of patient's decision for other reasons; F17.210 Nicotine dependence, cigarettes, uncomplicated; Z90.49 Acquired absence of other specified parts of digestive tract; Z79.899 Other long term (current) drug therapy
CPT/HCPCS: 74177; 83735; 87040; 87081; 87086; 88305; 88312; 93005; 96374; 96375; 96376; 99285; C9113; J0696; J1644; J2270; J2405; J2704; J3475; J3490; J7030; J7060; Q0162

== ENCOUNTER → 2019-09-22 | Outpatient (CLI) | payer MEDICARE ==
[~2019-09-22] MED LIST changes: +ALEN10TA26 PO; +ATOR20TA86 PO; +DSS100 PO; -HYDR-309 PO; +PANT40TA25 PO; -PERCT PO
== END | disposition home or self-care (01) ==
LOC: RADPV 09:27
PROVIDERS: ATTEND Family Medicine
DX: M85.871 Other specified disorders of bone density and structure, right ankle and foot (principal); M85.851 Other specified disorders of bone density and structure, right thigh; M85.88 Other specified disorders of bone density and structure, other site; M81.0 Age-related osteoporosis without current pathological fracture
CPT/HCPCS: 77080